=== PATIENT | male | born 1960 | race American Indian/Alaskan Native ===

== ENCOUNTER 2017-08-29 10:52 | Emergency (ER) | payer OTHER ==
--- NOTE | 2017-08-29 11:04 | Emergency Department Report ---
Stated Complaint: SOB/CP/HYPERTENSION/BACK PAIN Time Seen by Provider: 08/29/17 11:01 - HPI History of Present Illness: PT states he has a hx of CHF. PT states he has not taken any of his medication in 1 week. - ROS Review of Systems: - edema + orthopnea - headaches + nausea - Exam Physical Exam: PT's bp 180/124 no focal weakness noted gcs 15 RLL rhonchi MSE screening note: Focused history and physical exam performed. Due to findings the following was ordered: ekg, xr, labs ED Disposition for MSE Condition: Stable
[2017-08-29] MEDS ORDERED: CATAPRES PO ONE (11:05)
[2017-08-29] MEDS ORDERED: COREG PO ONE (11:05)
[2017-08-29 11:59] LABS: Eosinophils % (Auto) 5.5 % (0.0-4.3); Hematocrit 38.1 % (35.5-45.6); Hemoglobin 12.4 gm/dl (11.8-15.2); Mean Corpuscular HGB Conc 33 % (32-34); Mean Corpuscular Hemoglobin 29 pg (28-32); Mean Corpuscular Volume 88 fl (84-94); Platelet Count 238 K/mm3 (140-440); Red Blood Count 4.36 M/mm3 (3.65-5.03); Red Cell Distribution Width 17.2 % (13.2-15.2); White Blood Count 8.4 K/mm3 (4.5-11.0)
[2017-08-29 12:10] LABS: Albumin/Globulin Ratio 1.4 %; Bilirubin,Total 0.2 mg/dL (0.1-1.2); Calcium 9.5 mg/dL (8.4-10.2); Chloride 107.9 mmol/L (98-107); Potassium 4.4 mmol/L (3.6-5.0); Total Protein 6.8 g/dL (6.3-8.2)
--- NOTE | 2017-08-29 12:11 | XRay Report ---
ROUTINE CHEST, TWO VIEWS: SOB. PA and lateral views demonstrate the heart and mediastinal contour to be of normal size and shape. The lungs are clear and fully expanded and the soft tissues and bony structures are normal. IMPRESSION: Normal study.
[2017-08-29 12:12] LABS: INR 0.95 (0.87-1.13)
[2017-08-29 12:13] LABS: Partial Thromboplastin Time 30.2 Sec. (24.2-36.6)
[2017-08-29] MEDS ORDERED: BABY ASPIRIN PO ONE (13:01)
[2017-08-29] MEDS ORDERED: NORCO 5/325 PO ONE (13:40)
[2017-08-29] MEDS ORDERED: LASIX IV ONE (13:58)
--- NOTE | 2017-08-29 14:03 | Emergency Department Report ---
ED Shortness of Breath HPI - General Chief Complaint: Dyspnea/Respdistress Stated Complaint: SOB/CP/HYPERTENSION/BACK PAIN Time Seen by Provider: 08/29/17 11:01 Source: patient Mode of arrival: Ambulatory Limitations: No Limitations - History of Present Illness Initial Comments: 57-year-old male with a history of hypertension and CHF with complaint of worsening shortness of breath. Patient states she's been without his meds for the last week. She's had some increasing orthopnea and dyspnea on exertion. He denies any chest pain. He otherwise appears well. Denies any weight gain or edema in his legs. MD Complaint: shortness of breath -: days(s) Improves With: nothing Worsens With: nothing Treatments Prior to Arrival: none - Related Data Previous Rx's Medication Instructions Recorded Last Taken Type Coreg 25 mg PO BID #60 08/29/17 Unknown Rx Furosemide [Lasix TAB] 1 tab PO DAILY #30 tablet 08/29/17 Unknown Rx ISOSORBIDE MONOnitrate [Imdur ER] 30 mg PO DAILY #30 tablet 08/29/17 Unknown Rx amLODIPine [Norvasc] 1 tab PO DAILY #30 tablet 08/29/17 Unknown Rx cloNIDine [Catapres] 0.2 mg PO BID #60 tablet 08/29/17 Unknown Rx hydrALAZINE [Apresoline TAB] 1 tab PO QID #120 tablet 08/29/17 Unknown Rx Allergies Allergy/AdvReac Type Severity Reaction Status Date / Time No Known Allergies Allergy Unverified 08/29/17 11:03 ED Review of Systems ROS: Stated complaint: SOB/CP/HYPERTENSION/BACK PAIN Other details as noted in HPI Comment: All other systems reviewed and negative Constitutional: denies: chills, fever Eyes: denies: eye pain, eye discharge, vision change ENT: denies: ear pain, throat pain Respiratory: orthopnea, SOB with exertion. denies: cough, shortness of breath, wheezing Cardiovascular: denies: chest pain, palpitations Endocrine: no symptoms reported Gastrointestinal: denies: abdominal pain, nausea, diarrhea Genitourinary: denies: urgency, dysuria Musculoskeletal: denies: back pain, joint swelling, arthralgia Skin: denies: rash, lesions Neurological: denies: headache, weakness, paresthesias Psychiatric: denies: anxiety, depression Hematological/Lymphatic: denies: easy bleeding, easy bruising ED Past Medical Hx - Past Medical History Previous Medical History?: Yes Hx Hypertension: Yes Hx Congestive Heart Failure: Yes Hx Renal Disease: Yes (No dialysis) - Surgical History Past Surgical History?: Yes Additional Surgical History: Triple A repair in 2007 - Social History Smoking Status: Current Every Day Smoker Substance Use Type: Prescribed - Medications Home Medications: Home Medications Medication Instructions Recorded Confirmed Last Taken Type Coreg 25 mg PO BID #60 08/29/17 Unknown Rx Furosemide [Lasix TAB] 1 tab PO DAILY #30 tablet 08/29/17 Unknown Rx ISOSORBIDE MONOnitrate [Imdur ER] 30 mg PO DAILY #30 tablet 08/29/17 Unknown Rx amLODIPine [Norvasc] 1 tab PO DAILY #30 tablet 08/29/17 Unknown Rx cloNIDine [Catapres] 0.2 mg PO BID #60 tablet 08/29/17 Unknown Rx hydrALAZINE [Apresoline TAB] 1 tab PO QID #120 tablet 08/29/17 Unknown Rx ED Physical Exam - General Limitations: No Limitations General appearance: alert, in no apparent distress - Head Head exam: Present: atraumatic, normocephalic - Eye Eye exam: Present: normal appearance. Absent: scleral icterus, conjunctival injection - ENT ENT exam: Present: mucous membranes moist - Neck Neck exam: Present: normal inspection - Respiratory Respiratory exam: Present: normal lung sounds bilaterally. Absent: respiratory distress, wheezes - Cardiovascular Cardiovascular Exam: Present: regular rate, normal rhythm, normal heart sounds. Absent: systolic murmur, diastolic murmur, rubs, gallop - GI/Abdominal GI/Abdominal exam: Present: soft, normal bowel sounds. Absent: distended, tenderness - Rectal Rectal exam: Present: deferred - Extremities Exam Extremities exam: Present: normal inspection - Back Exam Back exam: Present: normal inspection - Neurological Exam Neurological exam: Present: alert, oriented X3 - Psychiatric Psychiatric exam: Present: normal affect, normal mood - Skin Skin exam: Present: warm, dry, intact, normal color. Absent: rash ED Course Vital Signs 08/29/17 11:06 Temperature 98.6 F Pulse Rate 98 H Respiratory 20 Rate Blood Pressure 180/124 O2 Sat by Pulse 99 Oximetry ED Medical Decision Making - Lab Data Result diagrams: 08/29/17 11:17 08/29/17 11:17 Laboratory Results - last 24 hr 08/29/17 08/29/17 08/29/17 11:17 11:17 11:17 WBC 8.4 RBC 4.36 Hgb 12.4 Hct 38.1 MCV 88 MCH 29 MCHC 33 RDW 17.2 H Plt Count 238 Lymph % (Auto) 27.5 [place] % (Auto) 12.2 H Eos % (Auto) 5.5 H Baso % (Auto) 1.0 Lymph # 2.3 [place] # 1.0 H Eos # 0.5 H Baso # 0.1 Seg Neutrophils % 53.8 Seg Neutrophils # 4.5 PT 13.2 INR 0.95 APTT 30.2 Sodium 143 Potassium 4.4 Chloride 107.9 H Carbon Dioxide 18 L Anion Gap 22 BUN 51 H Creatinine 3.4 H Estimated GFR 23 BUN/Creatinine Ratio 15 Glucose 71 L Calcium 9.5 Total Bilirubin 0.20 AST 14 ALT 10 Alkaline Phosphatase 64 Troponin T 0.064 H NT-Pro-B Natriuret Pep Total Protein 6.8 Albumin 4.0 Albumin/Globulin Ratio 1.4 Triglycerides 59 Cholesterol 236 H LDL Cholesterol Direct 156 H HDL Cholesterol 69 H Cholesterol/HDL Ratio 3.42 08/29/17 08/29/17 11:17 13:29 WBC RBC Hgb Hct MCV MCH MCHC RDW Plt Count Lymph % (Auto) [place] % (Auto) Eos % (Auto) Baso % (Auto) Lymph # [place] # Eos # Baso # Seg Neutrophils % Seg Neutrophils # PT INR APTT Sodium Potassium Chloride Carbon Dioxide Anion Gap BUN Creatinine Estimated GFR BUN/Creatinine Ratio Glucose Calcium Total Bilirubin AST ALT Alkaline Phosphatase Troponin T 0.064 H NT-Pro-B Natriuret Pep 6536 H Total Protein Albumin Albumin/Globulin Ratio Triglycerides Cholesterol LDL Cholesterol Direct HDL Cholesterol Cholesterol/HDL Ratio - Medical Decision Making 57-year-old male here with complaint of shortness of breath with exertion. Patient denies chest pain. Patient has had worsening symptoms the last few days. He denies fevers chills nausea vomiting. He has a elevated BNP. His creatinine is 3.4 which she says is near his baseline. I do not have labs. I discussed the need for the patient reinitiate his medications are given prescriptions for all of his old medications. He is comfortable self diuresing home. He will take an additional dose of Lasix were to have the next couple days and then go back to his prior regimen. He will follow-up with his primary care or backrest assembler as an outpatient. Portions of this chart were dictated with dictation software. There may be dictation errors contained within this note. Critical care attestation.: If time is entered above; I have spent that time in minutes in the direct care of this critically ill patient, excluding procedure time. ED Disposition Clinical Impression: CHF (congestive heart failure) Disposition: TO HOME OR SELFCARE Is pt being admited?: No Condition: Stable Instructions: Heart Failure (ED) Additional Instructions: Please follow-up with your regular backrest assembler. You need to be monitored closely. Prescriptions: amLODIPine [Norvasc] 1 tab PO DAILY #30 tablet cloNIDine [Catapres] 0.2 mg PO BID #60 tablet Coreg 25 mg PO BID #60 Furosemide [Lasix TAB] 1 tab PO DAILY #30 tablet hydrALAZINE [Apresoline TAB] 1 tab PO QID #120 tablet ISOSORBIDE MONOnitrate [Imdur ER] 30 mg PO DAILY #30 tablet Referrals: PRIMARY CARE, [Primary Care Provider] - 3-5 Days
[2017-08-29] MEDS ORDERED: LASIX ONE (14:43)
[2017-08-29] MEDS ORDERED: LASIX PO ONE (14:49)
[2017-08-29 15:11] VITALS: BP 180/124
== END 2017-08-29 15:00 | disposition home or self-care (01) ==
LOC: ED 10:52
DX: I50.9 Heart failure, unspecified (principal); I10 Essential (primary) hypertension; N28.9 Disorder of kidney and ureter, unspecified; F17.200 Nicotine dependence, unspecified, uncomplicated
CPT/HCPCS: 36415; 71020; 80053; 80061; 83880; 84484; 85025; 85610; 85730; 93005; 93010; 99284

== ENCOUNTER 2018-11-23 10:59 | Inpatient (IN) | payer OTHER ==
--- NOTE | 2018-11-23 11:40 | Emergency Department Report ---
ED Shortness of Breath HPI - General Chief Complaint: Dyspnea/Respdistress Stated Complaint: TI/DIZZY/CHILLS/BACK PAIN Time Seen by Provider: 11/23/18 11:30 Source: patient Mode of arrival: Ambulatory Limitations: No Limitations - History of Present Illness Initial Comments: 58-year-old male with history of CHF, CKD (not yet on dialysis) presents with shortness of breath and dizziness since yesterday. He states he feels leg he is fluid overloaded. He reports swelling to bilateral legs. States he is compliant with Lasix 40 mg daily. Patient reports orthopnea, dry cough with lying down. Patient denies chest pain, fever. Patient states he does not have a PCP or web operations specialist. MD Complaint: shortness of breath -: days(s) (1) Severity: moderate Consistency: constant Improves With: upright position Worsens With: lying flat Known History Of: congestive heart failure Associated Symptoms: denies other symptoms - Related Data Previous Rx's Medication Instructions Recorded Last Taken Type Coreg 25 mg PO BID #60 08/29/17 Unknown Rx Furosemide [Lasix TAB] 1 tab PO DAILY #30 tablet 08/29/17 Unknown Rx ISOSORBIDE MONOnitrate [Imdur ER] 30 mg PO DAILY #30 tablet 08/29/17 Unknown Rx amLODIPine [Norvasc] 1 tab PO DAILY #30 tablet 08/29/17 Unknown Rx cloNIDine [Catapres] 0.2 mg PO BID #60 tablet 08/29/17 Unknown Rx hydrALAZINE [Apresoline TAB] 1 tab PO QID #120 tablet 08/29/17 Unknown Rx Allergies Allergy/AdvReac Type Severity Reaction Status Date / Time No Known Allergies Allergy Unverified 08/29/17 11:03 ED Review of Systems ROS: Stated complaint: TI/DIZZY/CHILLS/BACK PAIN Other details as noted in HPI Comment: All other systems reviewed and negative Constitutional: denies: chills, fever Respiratory: orthopnea, shortness of breath, SOB with exertion Cardiovascular: denies: chest pain Musculoskeletal: other (reports edema) ED Past Medical Hx - Past Medical History Hx Hypertension: Yes Hx Congestive Heart Failure: Yes Hx Renal Disease: Yes (No dialysis) - Surgical History Additional Surgical History: Triple A repair in 2007 - Social History Smoking Status: Never Smoker Substance Use Type: None - Medications Home Medications: Home Medications Medication Instructions Recorded Confirmed Last Taken Type Coreg 25 mg PO BID #60 08/29/17 Unknown Rx Furosemide [Lasix TAB] 1 tab PO DAILY #30 tablet 08/29/17 Unknown Rx ISOSORBIDE MONOnitrate [Imdur ER] 30 mg PO DAILY #30 tablet 08/29/17 Unknown Rx amLODIPine [Norvasc] 1 tab PO DAILY #30 tablet 08/29/17 Unknown Rx cloNIDine [Catapres] 0.2 mg PO BID #60 tablet 08/29/17 Unknown Rx hydrALAZINE [Apresoline TAB] 1 tab PO QID #120 tablet 08/29/17 Unknown Rx ED Physical Exam - General Limitations: No Limitations General appearance: alert, in no apparent distress - Head Head exam: Present: atraumatic, normocephalic - Eye Eye exam: Present: normal appearance - ENT ENT exam: Present: mucous membranes dry - Neck Neck exam: Present: normal inspection - Respiratory Respiratory exam: Present: rales. Absent: respiratory distress - Cardiovascular Cardiovascular Exam: Present: regular rate, normal rhythm - GI/Abdominal GI/Abdominal exam: Present: soft. Absent: distended, tenderness - Extremities Exam Extremities exam: Present: other (2+ edema BLE) - Neurological Exam Neurological exam: Present: alert, oriented X3 - Psychiatric Psychiatric exam: Present: normal affect, normal mood - Skin Skin exam: Present: warm, dry, intact, normal color ED Course Vital Signs 11/23/18 11/23/18 11/23/18 11:08 11:35 11:46 Temperature 98.3 F Pulse Rate 83 79 Respiratory 18 14 Rate Blood Pressure 166/93 143/86 O2 Sat by Pulse 100 83 L 98 Oximetry 11/23/18 11/23/18 11/23/18 12:00 12:16 12:30 Temperature Pulse Rate 79 85 79 Respiratory 24 17 15 Rate Blood Pressure 143/86 143/86 143/86 O2 Sat by Pulse 98 98 98 Oximetry 11/23/18 11/23/18 11/23/18 12:46 13:00 13:16 Temperature Pulse Rate 85 78 80 Respiratory 20 21 26 H Rate Blood Pressure 143/86 143/86 143/86 O2 Sat by Pulse 98 99 96 Oximetry 11/23/18 13:30 Temperature Pulse Rate 82 Respiratory 16 Rate Blood Pressure 143/86 O2 Sat by Pulse 98 Oximetry ED Medical Decision Making - Lab Data Result diagrams: 11/23/18 11:45 11/23/18 11:45 - EKG Data -: EKG Interpreted by Me EKG shows normal: sinus rhythm, intervals Rate: normal - EKG Data Interpretation: LVH, other (T wave inv lateral leads; IVCD) - Radiology Data Radiology results: report reviewed, image reviewed - Medical Decision Making 58-year-old male presents to ED with shortness of breath, dizziness. Patient's lab show acute on chronic renal failure. 2 months ago creatinine was at 3.4, today's creatinine is 8.1. Patient states he's been told by investigation division sergeant in the past that he will likely have to begin dialysis. No evidence of hyperkalemia today. O2 sats normal chest x-ray shows vascular congestion. Patient had no respiratory distress. Troponin elevated, likely due to renal dysfunction as patient denied having any chest pain and EKG unchanged from previous. Lasix not given here in the ED given the patient's current creatinine and current respiratory status. Will admit to hospitalist. - Differential Diagnosis CHF, ACS, pneumonia Critical care attestation.: If time is entered above; I have spent that time in minutes in the direct care of this critically ill patient, excluding procedure time. ED Disposition Clinical Impression: Acute on chronic renal failure, Pulmonary edema CHF (congestive heart failure) Qualifiers: Heart failure chronicity: acute Disposition: DC-09 OP ADMIT IP TO THIS HOSP Is pt being admited?: Yes Condition: Stable Time of Disposition: 13:11
[2018-11-23 12:01] LABS: Basophils # (Auto) 0.1 K/mm3 (0.0-0.1); Basophils % (Auto) 1.3 % (0.0-1.8); Eosinophils # (Auto) 0.3 K/mm3 (0.0-0.4); Eosinophils % (Auto) 5.2 % (0.0-4.3); Hematocrit 28.4 % (35.5-45.6); Hemoglobin 9.1 gm/dl (11.8-15.2); Lymphocytes # (Auto) 0.5 K/mm3 (1.2-5.4); Lymphocytes % (Auto) 8.7 % (13.4-35.0); Mean Corpuscular HGB Conc 32 % (32-34); Mean Corpuscular Hemoglobin 28 pg (28-32); Mean Corpuscular Volume 85 fl (84-94); Monocytes # (Auto) 0.8 K/mm3 (0.0-0.8); Monocytes % (Auto) 13.7 % (0.0-7.3); Platelet Count 167 K/mm3 (140-440); Red Blood Count 3.32 M/mm3 (3.65-5.03); Red Cell Distribution Width 18.9 % (13.2-15.2)
[2018-11-23 12:12] LABS: INR 1.04 (0.87-1.13)
[2018-11-23 12:13] LABS: Partial Thromboplastin Time 25.8 Sec. (24.2-36.6)
[2018-11-23 12:16] LABS: Calcium 9.8 mg/dL (8.4-10.2)
[2018-11-23] MEDS ORDERED: ULTRAM PO ONE (12:33)
[2018-11-23 13:00] LABS: Chol/HDL Ratio 3.04 %
[2018-11-23] MEDS ORDERED: SODIUM CHLORIDE FLUSH SYRINGE 10 ML IV PRN (13:16)
[2018-11-23] MEDS ORDERED: PROVENTIL IH PRN (13:16)
[2018-11-23] MEDS ORDERED: TYLENOL PO PRN (13:16)
[2018-11-23] MEDS ORDERED: ZOFRAN IV PRN (13:16)
--- NOTE | 2018-11-23 13:22 | History and Physical Report ---
History of Present Illness Chief complaint: I cant breathe, and i just dont feel good History of present illness: 58 YO Female with CHF, ESRD awaiting hemodialysis presents to ED for evaluation. Pt states that he has experienced shortness of breath over the past 1 day with worsening symptoms over the same time frame. Pt acknowledges noncompliance with renal diet. Pt acknowledges Orthopnea/PND, decreased exercise tolerance. Pt transported to [facility] for further care and evaluation. Pt seen and evaluated in ED and found to have ESRD as well as CHF Decompensation. Pt denies fever, chills, CP, Palpitations, NVD, Trauma, BRBPR, Skin rash, productive cough, unilateral leg swelling, prolonged travel/immobility, individual/family history of DVT/PE/Blood clotting disorder, or recent ill contacts. Nephrology consulted in ED, Vascular consulted in ED. Past History Past Medical History: ESRD, heart failure Past Surgical History: abd. aortic aneurysm repair Social history: Family history: no significant family history (reviewed) Medications and Allergies Allergies Allergy/AdvReac Type Severity Reaction Status Date / Time No Known Allergies Allergy Unverified 08/29/17 11:03 Home Medications Medication Instructions Recorded Confirmed Last Taken Type Coreg 25 mg PO BID #60 08/29/17 Unknown Rx Furosemide [Lasix TAB] 1 tab PO DAILY #30 tablet 08/29/17 Unknown Rx ISOSORBIDE MONOnitrate [Imdur ER] 30 mg PO DAILY #30 tablet 08/29/17 Unknown Rx amLODIPine [Norvasc] 1 tab PO DAILY #30 tablet 08/29/17 Unknown Rx cloNIDine [Catapres] 0.2 mg PO BID #60 tablet 08/29/17 Unknown Rx hydrALAZINE [Apresoline TAB] 1 tab PO QID #120 tablet 08/29/17 Unknown Rx Review of Systems Constitutional: weight gain, no weight loss, no fever, no chills, no sweats Ears, nose, mouth and throat: no ear pain, no ear discharge, no tinnitis, no d ecreased hearing, no nose pain Cardiovascular: orthopnea, edema, shortness of breath, dyspnea on exertion, paroxysmal nocturnal dyspnea, decreased exercise tolerance, no chest pain, no palpitations, no rapid/irregular heart beat Respiratory: no cough, no cough with sputum, no excessive sputum, no hemoptysis Gastrointestinal: no nausea, no vomiting, no diarrhea, no constipation, no change in bowel habits Genitourinary Male: no dysuria, no hematuria, no flank pain, no discharge Musculoskeletal: no neck pain, no shooting arm pain, no arm numbness/tingling, no low back pain, no shooting leg pain Integumentary: no rash, no pruritis, no redness, no sores, no wounds Neurological: no transient paralysis, no paralysis, no weakness, no parathesias, no numbness, no tingling, no seizures Psychiatric: no anxiety, no memory loss, no change in sleep habits, no sleep disturbances, no insomnia, no hypersomnia Endocrine: no cold intolerance, no heat intolerance, no polyphagia, no excessive thirst, no polydipsia Hematologic/Lymphatic: no easy bruising, no easy bleeding, no lymphadenopathy, no lymphedema Allergic/Immunologic: no urticaria, no allergic rhinitis, no wheezing, no persistent infections, no anaphylaxis, no angioedema Exam - Constitutional Vitals: Temp Pulse Resp BP Pulse Ox 98.3 F 83 18 166/93 100 11/23/18 11:08 11/23/18 11:08 11/23/18 11:08 11/23/18 11:08 11/23/18 11:08 General appearance: Present: mild distress - EENT Eyes: Present: PERRL ENT: hearing intact, clear oral mucosa - Neck Neck: Present: supple, normal ROM - Respiratory Respiratory effort: normal Respiratory: bilateral: diminished, rhonchi - Cardiovascular Heart Sounds: Present: S1 & S2. Absent: rub, click - Extremities Extremities: pulses symmetrical, No edema Extremity abnormal: edema Peripheral Pulses: within normal limits - Abdominal General gastrointestinal: Present: soft, non-tender, non-distended, normal bowel sounds Male genitourinary: Present: normal - Integumentary Integumentary: Present: clear, warm, dry - Musculoskeletal Musculoskeletal: gait normal, strength equal bilaterally - Psychiatric Psychiatric: appropriate mood/affect, intact judgment & insight - Neurologic Neurologic: CNII-XII intact, moves all extremities Results - Labs CBC & Chem 7: 11/23/18 11:45 11/23/18 11:45 Labs: Abnormal lab results 11/23/18 11/23/18 11/23/18 Range/Units 11:45 11:45 11:45 RBC 3.32 L (3.65-5.03) M/mm3 Hgb 9.1 L (11.8-15.2) gm/dl Hct 28.4 L (35.5-45.6) % RDW 18.9 H (13.2-15.2) % Lymph % (Auto) 8.7 L (13.4-35.0) % [place] % (Auto) 13.7 H (0.0-7.3) % Eos % (Auto) 5.2 H (0.0-4.3) % Lymph # 0.5 L (1.2-5.4) K/mm3 Seg Neutrophils % 71.1 H (40.0-70.0) % Chloride 109.0 H (98-107) mmol/L Carbon Dioxide 16 L (22-30) mmol/L BUN 75 H (9-20) mg/dL Creatinine 8.1 H (0.8-1.5) mg/dL Glucose 105 H (75-100) mg/dL Troponin T (0.00-0.029) ng/mL NT-Pro-B Natriuret Pep 8651 H (0-900) pg/mL 11/23/18 Range/Units 11:45 RBC (3.65-5.03) M/mm3 Hgb (11.8-15.2) gm/dl Hct (35.5-45.6) % RDW (13.2-15.2) % Lymph % (Auto) (13.4-35.0) % [place] % (Auto) (0.0-7.3) % Eos % (Auto) (0.0-4.3) % Lymph # (1.2-5.4) K/mm3 Seg Neutrophils % (40.0-70.0) % Chloride (98-107) mmol/L Carbon Dioxide (22-30) mmol/L BUN (9-20) mg/dL Creatinine (0.8-1.5) mg/dL Glucose (75-100) mg/dL Troponin T 0.122 H* (0.00-0.029) ng/mL NT-Pro-B Natriuret Pep (0-900) pg/mL Assessment and Plan - Patient Problems (1) ESRD (end stage renal disease) Current Visit: Yes Status: Acute Plan to address problem: Nephrology consulted in ED for urgent dialysis, Vascular consulted for Permacath placement (2) CHF (congestive heart failure) Current Visit: Yes Status: Acute Qualifiers: Heart failure chronicity: acute Plan to address problem: Admit to Telemetry, cardiology consulted, strict I/O, Daily weight, bnp, diuresis, afterload reduction (3) Acidosis Current Visit: Yes Status: Acute Plan to address problem: urgent dialysis, IV bicarbonate, (4) DVT prophylaxis Current Visit: Yes Status: Acute Plan to address problem: SCD to BLE while in bed.
--- NOTE | 2018-11-23 13:38 | XRay Report ---
AP CHEST: HISTORY: Shortness of breath Mild cardiomegaly and pulmonary venous congestion appear relatively stable since 08/29/17. Hazy opacity has developed in the superior lingula which could represent an early infiltrate. The right lung is clear. No pleural effusion or pneumothorax is identified. IMPRESSION: Mild cardiomegaly and central pulmonary venous congestion. Probable early lingular infiltrate.
[2018-11-23] MEDS ORDERED: SODIUM BICARBONATE IV ONE (14:08)
[2018-11-23] MEDS ORDERED: SODIUM BICARBONATE Syringe IV ONE ×2 (14:30→15:44)
[2018-11-23] MEDS ORDERED: APRESOLINE ONE (15:41)
--- NOTE | 2018-11-23 15:49 | Consultation ---
History of Present Illness - Reason for Consult Consult date: 11/23/18 chronic renal failure, other (uremia) - History of Present Illness The patient is a 58 YO male with history significant for HTN, HLD, CHF and CKD stage 5 who presented to [facility] ED with c/o sob since yesterday. The onset was fairly acute with worsening symptoms. Pt also reports orthopnea, PND, dry cough, leg swelling and feeling tired. Patient denies any N, V, D, hemoptysis, wheezing, fever, chills, rash, dizziness, syncope, dysuria, hematuria or abd pain. Patient was diagnosed with CHF Decompensation, volume overload and CKD progressed to ESRD. Nephrology and Vascular consulted in ED for further evaluation. Past History Past Medical History: heart failure, hypertension, hyperlipidemia, renal failure Past Surgical History: abd. aortic aneurysm repair Social history: Family history: no significant family history (reviewed) Medications and Allergies Allergies Allergy/AdvReac Type Severity Reaction Status Date / Time No Known Allergies Allergy Unverified 08/29/17 11:03 Home Medications Medication Instructions Recorded Confirmed Last Taken Type Coreg 25 mg PO BID #60 08/29/17 Unknown Rx Furosemide [Lasix TAB] 1 tab PO DAILY #30 tablet 08/29/17 Unknown Rx ISOSORBIDE MONOnitrate [Imdur ER] 30 mg PO DAILY #30 tablet 08/29/17 Unknown Rx amLODIPine [Norvasc] 1 tab PO DAILY #30 tablet 08/29/17 Unknown Rx cloNIDine [Catapres] 0.2 mg PO BID #60 tablet 08/29/17 Unknown Rx hydrALAZINE [Apresoline TAB] 1 tab PO QID #120 tablet 08/29/17 Unknown Rx Active Meds: Active Medications Acetaminophen (Tylenol) 650 mg PO Q4H PRN PRN Reason: Pain MILD(1-3)/Fever >100.5/HUBER Albuterol (Proventil) 2.5 mg IH Q4HRT PRN PRN Reason: Shortness Of Breath Amlodipine Besylate (Norvasc) 5 mg PO DAILY [facility] Clonidine HCl (Catapres) 0.2 mg PO BID EDDY Furosemide (Lasix) 80 mg PO DAILY EDDY Furosemide (Lasix) 40 mg IV BID@0600,1800 EDDY Hydralazine HCl (Apresoline) 25 mg PO QID EDDY Isosorbide Mononitrate (Imdur) 30 mg PO DAILY [facility] Ondansetron HCl (Zofran) 4 mg IV Q8H PRN PRN Reason: Nausea And Vomiting Sodium Chloride (Sodium Chloride Flush Syringe 10 Ml) 10 ml IV BID EDDY Sodium Chloride (Sodium Chloride Flush Syringe 10 Ml) 10 ml IV PRN PRN PRN Reason: LINE FLUSH Review of Systems Constitutional: fatigue, no weight loss, no weight gain, no fever, no chills, no anorexia Cardiovascular: orthopnea, edema, shortness of breath, dyspnea on exertion, paroxysmal nocturnal dyspnea, high blood pressure, leg edema, decreased exercise tolerance, no chest pain, no palpitations, no syncope, no lightheadedness Respiratory: cough, shortness of breath, dyspnea on exertion, no cough with sputum, no excessive sputum, no hemoptysis, no sleep apnea, no home oxygen Gastrointestinal: no abdominal pain, no nausea, no vomiting, no diarrhea, no hematemesis, no melena, no jaundice Genitourinary Male: no dysuria, no hematuria Rectal: no bleeding Musculoskeletal: no muscle weakness, no muscle cramps Integumentary: no rash, no wounds, no jaundice Neurological: no weakness, no parathesias, no numbness, no tingling, no seizures, no syncope, no headaches, no convulsions, no change in speech, no change in mentation, no confusion, no memory loss, no double vision, no loss of vision Psychiatric: no memory loss, no hypersomnia, no confusion Endocrine: no polyuria Exam - Vital Signs Vital signs: Vital Signs Temp Pulse Resp BP Pulse Ox 98.3 F 83 18 166/93 100 11/23/18 11:08 11/23/18 11:08 11/23/18 11:08 11/23/18 11:08 11/23/18 11:08 - General Appearance General appearance: well-developed, appears stated age, other (patient appears ill, not in distress) EENT: ATNC, PERRL, mucous membranes dry, hearing intact, vision intact Neck: Present: neck supple, trachea midline Respiratory: Rales Heart: regular, S1S2, no murmurs Gastrointestinal: Present: normoactive bowel sounds. Absent: tenderness, distended Integumentary: no rash, warm and dry Neurologic: no focal deficit, no asterixis, alert and oriented x3 Musculoskeletal: Present: other (no edema) Results - Lab Results 11/23/18 11:45 11/23/18 11:45 Most recent lab results Calcium 9.8 mg/dL (8.4-10.2) 11/23/18 11:45 Assessment and Plan 1. ESRD: Patient presented with volume overload and uremic symptoms. CKD stage 5 has progressed to ESRD. Explained patient that he need hemodialysis to treat his condition and also informed the dangers of not doing hemodialysis. Patient followed by [facility] at [place] and he is aware of dialysis. He refused dialysis inspite of multiple physicians talking to him. Understood the risks involved. 2. FEN: Lasix for volume overload. Metabolic acidosis, PO sodium bicarbonate. Monitor. 3. CHF exacerbation: Continue Lasix for volume overload. 4. Hypertension: BP is fair. 5. Anemia: Secondary to CKD. 6. Medical non-compliance.
[2018-11-23] MEDS: APRESOLINE PO SCH ×3 (15:50→21:08)
--- NOTE | 2018-11-23 15:54 | Consultation ---
History of Present Illness - Reason for Consult Consult date: 11/23/18 Permcath placement - History of Present Illness The patient is a 58 year old male with history significant for HTN, HLD, CHF and CKD stage 5 who presented to [facility] ED with complaints of sob since yesterday. The onset was fairly acute with worsening symptoms. The patient reports orthopnea, PND, dry cough, leg swelling and feeling tired. The patient denies any N, V, D, hemoptysis, wheezing, fever, chills, rash, dizziness, syncope, dysuria, hematuria or abd pain. Patient was diagnosed with CHF Decompensation, volume overload and CKD progressed to ESRD. Nephrology and Vascular consulted in ED for further evaluation. I discussed the situation with the patient and discussed hemodialysis access with the patient. Past History Past Medical History: ESRD, heart failure Past Surgical History: abd. aortic aneurysm repair Social history: Family history: no significant family history (reviewed) Medications and Allergies Allergies Allergy/AdvReac Type Severity Reaction Status Date / Time No Known Allergies Allergy Unverified 08/29/17 11:03 Home Medications Medication Instructions Recorded Confirmed Last Taken Type Coreg 25 mg PO BID #60 08/29/17 Unknown Rx Furosemide [Lasix TAB] 1 tab PO DAILY #30 tablet 08/29/17 Unknown Rx ISOSORBIDE MONOnitrate [Imdur ER] 30 mg PO DAILY #30 tablet 08/29/17 Unknown Rx amLODIPine [Norvasc] 1 tab PO DAILY #30 tablet 08/29/17 Unknown Rx cloNIDine [Catapres] 0.2 mg PO BID #60 tablet 08/29/17 Unknown Rx hydrALAZINE [Apresoline TAB] 1 tab PO QID #120 tablet 08/29/17 Unknown Rx Active Meds: Active Medications Acetaminophen (Tylenol) 650 mg PO Q4H PRN PRN Reason: Pain MILD(1-3)/Fever >100.5/HUBER Albuterol (Proventil) 2.5 mg IH Q4HRT PRN PRN Reason: Shortness Of Breath Amlodipine Besylate (Norvasc) 5 mg PO DAILY [facility] Clonidine HCl (Catapres) 0.2 mg PO BID EDDY Furosemide (Lasix) 80 mg PO DAILY EDDY Furosemide (Lasix) 40 mg IV BID@0600,1800 EDDY Hydralazine HCl (Apresoline) 25 mg PO QID EDDY Isosorbide Mononitrate (Imdur) 30 mg PO DAILY [facility] Ondansetron HCl (Zofran) 4 mg IV Q8H PRN PRN Reason: Nausea And Vomiting Sodium Chloride (Sodium Chloride Flush Syringe 10 Ml) 10 ml IV BID [facility] Sodium Chloride (Sodium Chloride Flush Syringe 10 Ml) 10 ml IV PRN PRN PRN Reason: LINE FLUSH Review of Systems All systems: negative (see HPI) Exam - Constitutional Vitals: Temp Pulse Resp BP Pulse Ox 98.3 F 85 13 144/84 99 11/23/18 11:08 11/23/18 14:16 11/23/18 14:16 11/23/18 14:00 11/23/18 14:16 General appearance: Present: mild distress (SOB) - EENT Eyes: Present: EOM intact ENT: hearing intact - Respiratory Respiratory effort: labored - Psychiatric Psychiatric: appropriate mood/affect, cooperative Results - Labs CBC & Chem 7: 11/23/18 11:45 11/23/18 11:45 Labs: Abnormal lab results 11/23/18 11/23/18 11/23/18 Range/Units 11:45 11:45 11:45 RBC 3.32 L (3.65-5.03) M/mm3 Hgb 9.1 L (11.8-15.2) gm/dl Hct 28.4 L (35.5-45.6) % RDW 18.9 H (13.2-15.2) % Lymph % (Auto) 8.7 L (13.4-35.0) % [place] % (Auto) 13.7 H (0.0-7.3) % Eos % (Auto) 5.2 H (0.0-4.3) % Lymph # 0.5 L (1.2-5.4) K/mm3 Seg Neutrophils % 71.1 H (40.0-70.0) % Chloride 109.0 H (98-107) mmol/L Carbon Dioxide 16 L (22-30) mmol/L BUN 75 H (9-20) mg/dL Creatinine 8.1 H (0.8-1.5) mg/dL Glucose 105 H (75-100) mg/dL Troponin T (0.00-0.029) ng/mL NT-Pro-B Natriuret Pep 8651 H (0-900) pg/mL 11/23/18 Range/Units 11:45 RBC (3.65-5.03) M/mm3 Hgb (11.8-15.2) gm/dl Hct (35.5-45.6) % RDW (13.2-15.2) % Lymph % (Auto) (13.4-35.0) % [place] % (Auto) (0.0-7.3) % Eos % (Auto) (0.0-4.3) % Lymph # (1.2-5.4) K/mm3 Seg Neutrophils % (40.0-70.0) % Chloride (98-107) mmol/L Carbon Dioxide (22-30) mmol/L BUN (9-20) mg/dL Creatinine (0.8-1.5) mg/dL Glucose (75-100) mg/dL Troponin T 0.122 H* (0.00-0.029) ng/mL NT-Pro-B Natriuret Pep (0-900) pg/mL Assessment and Plan 58-year-old male with presentation with congestive heart failure exacerbation and end-stage renal disease with uremic symptoms and volume load. I had a long discussion with the patient about dialysis catheter placement for dialysis. The patient would qualify for urgent dialysis. Unfortunately, despite a long discussion with myself, the hospitalist Dr. Sprague, and the development manager Dr. Ruiz, the patient has declined dialysis at this time. He understands that there is no good alternatives and declining dialysis may result in . He understands. Please contact us if patient changes his mind, but at this time, he has declined dialysis and understands that the risk of the declining dialysis is .
[2018-11-23] MEDS ORDERED: LASIX ONE (16:57)
[2018-11-23] MEDS: LASIX IV SCH ×2 (17:06→21:09)
[2018-11-23] MEDS: CATAPRES PO SCH (21:08)
[2018-11-23] MEDS: SODIUM BICARBONATE PO SCH (21:08)
[2018-11-23] MEDS: SODIUM CHLORIDE FLUSH SYRINGE 10 ML IV SCH (21:09)
[2018-11-24 00:33] LABS: Bilirubin,Urine NEG (Negative); Blood,Urine SM (Negative); Color,Urine Straw (Yellow); RBC,Urine < 1.0 /HPF (0.0-6.0); Urobilinogen,Urine < 2.0 mg/dL (<2.0)
[2018-11-24 00:48] LABS: Mucus,Urine Few /HPF; WBC,Urine < 1.0 /HPF (0.0-6.0)
[2018-11-24] MEDS: ULTRAM PO PRN ×2 (00:57→18:18)
[2018-11-24 01:06] LABS: Creatinine,Urine 46.3 mg/dL (0.1-20.0); Protein/Creatinine Ratio,Urine 0.91
[2018-11-24] MEDS: LASIX IV SCH ×2 (05:15→18:11)
[2018-11-24 07:30] LABS: Albumin 3.7 g/dL (3.9-5); Calcium 9.5 mg/dL (8.4-10.2)
[2018-11-24] MEDS ORDERED: FUROSEMIDE PO SCH (10:00)
--- NOTE | 2018-11-24 10:17 | Progress Note ---
Assessment and Plan 1. ESRD: Patient presented with volume overload and uremic symptoms. CKD stage 5 has progressed to ESRD. Patient continue to refuse any kind of dialysis. He is aware of the consequences. 2. FEN: Lasix for volume overload. Metabolic acidosis, PO sodium bicarbonate. Monitor. 3. CHF exacerbation: Continue Lasix for volume overload. 4. Hypertension: BP is fair. 5. Anemia: Secondary to CKD. 6. Medical non-compliance. Subjective Date of service: 11/24/18 Interval history: Patient was seen and examined at the bedside. Doing ok. Objective - Vital Signs Vital signs: Vital Signs - 12hr 11/23/18 11/24/18 11/24/18 22:40 00:57 01:14 Temperature Pulse Rate Pulse Rate [ 81 Apical] Respiratory 18 10 L Rate Respiratory 18 Rate [Back] Blood Pressure O2 Sat by Pulse 94 Oximetry 11/24/18 11/24/18 11/24/18 01:57 04:57 09:12 Temperature 98.3 F 98.7 F Pulse Rate 74 Pulse Rate [ Apical] Respiratory 18 17 18 Rate Respiratory Rate [Back] Blood Pressure 148/98 155/102 O2 Sat by Pulse 97 Oximetry - General Appearance General appearance: well-developed, well-nourished, appears stated age, other (not in distress) EENT: ATNC, PERRL, hearing intact, vision intact Neck: supple Respiratory: Present: Clear to Ascultation Cardiology: regular, S1S2, no murmurs Gastrointestinal: normoactive bowel sounds, no tenderness, no distended Integumentary: no rash, warm and dry Neurologic: no focal deficit, no asterixis, alert and oriented x3 Musculoskeletal: other (no edema) - Lab 11/23/18 11:45 11/24/18 05:45 Most recent lab results Calcium 9.5 mg/dL (8.4-10.2) 11/24/18 05:45 Phosphorus 4.20 mg/dL (2.5-4.5) 11/24/18 05:45 Magnesium 2.10 mg/dL (1.7-2.3) 11/24/18 05:45 Urine Creatinine 46.3 mg/dL (0.1-20.0) H 11/24/18 00:13 Urine Sodium 122 mmol/L 11/24/18 00:13 Urine Total Protein 42 mg/dL (5-11.8) H 11/24/18 00:13 Medications & Allergies - Medications Allergies/Adverse Reactions: Allergies No Known Allergies Allergy (Unverified 08/29/17 11:03) Home Medications: Home Medications Medication Instructions Recorded Confirmed Last Taken Type Coreg 25 mg PO BID #60 08/29/17 Unknown Rx Furosemide [Lasix TAB] 1 tab PO DAILY #30 tablet 08/29/17 Unknown Rx ISOSORBIDE MONOnitrate [Imdur ER] 30 mg PO DAILY #30 tablet 08/29/17 Unknown Rx amLODIPine [Norvasc] 1 tab PO DAILY #30 tablet 08/29/17 Unknown Rx cloNIDine [Catapres] 0.2 mg PO BID #60 tablet 08/29/17 Unknown Rx hydrALAZINE [Apresoline TAB] 1 tab PO QID #120 tablet 08/29/17 Unknown Rx Active Medications: Generic Name Dose Route Start Last Admin Trade Name Freq PRN Reason Stop Dose Admin Acetaminophen 650 mg 11/23/18 13:16 11/23/18 21:06 Tylenol PO 650 mg Q4H PRN Administration Pain MILD(1-3)/Fever >100.5/HUBER Albuterol 2.5 mg 11/23/18 13:16 Proventil IH Q4HRT PRN Shortness Of Breath Amlodipine Besylate 5 mg 11/24/18 10:00 Norvasc PO DAILY EDDY Clonidine HCl 0.2 mg 11/23/18 22:00 11/23/18 21:08 Catapres PO 0.2 mg BID EDDY Administration Furosemide 80 mg 11/24/18 10:00 Lasix PO DAILY EDDY Furosemide 40 mg 11/23/18 18:00 11/24/18 05:15 Lasix IV 40 mg BID@0600,1800 EDDY Administration Hydralazine HCl 25 mg 11/23/18 14:00 11/23/18 21:08 Apresoline PO Not Given QID EDDY Isosorbide Mononitrate 30 mg 11/24/18 10:00 Imdur PO DAILY [facility] Ondansetron HCl 4 mg 11/23/18 13:16 Zofran IV Q8H PRN Nausea And Vomiting Sodium Bicarbonate 650 mg 11/23/18 20:00 11/23/18 21:08 Sodium Bicarbonate PO 650 mg TID EDDY Administration Sodium Chloride 10 ml 11/23/18 22:00 11/23/18 21:09 Sodium Chloride Flush Syringe 10 Ml IV 10 ml BID EDDY Administration Sodium Chloride 10 ml 11/23/18 13:16 Sodium Chloride Flush Syringe 10 Ml IV PRN PRN LINE FLUSH Tramadol HCl 50 mg 11/24/18 00:35 11/24/18 00:57 Ultram PO 50 mg Q6H PRN Administration Pain, Moderate (4-6)
[2018-11-24] MEDS: IMDUR PO SCH (10:33)
[2018-11-24] MEDS: NORVASC PO SCH (10:34)
[2018-11-24] MEDS: SODIUM BICARBONATE PO SCH ×3 (10:34→20:06)
[2018-11-24] MEDS: APRESOLINE PO SCH ×4 (10:34→21:41)
[2018-11-24] MEDS: CATAPRES PO SCH ×2 (10:34→21:40)
[2018-11-24] MEDS: LASIX PO SCH (10:38)
--- NOTE | 2018-11-24 10:49 | Progress Note ---
Assessment and Plan Assessment and plan: (1) ESRD (end stage renal disease) Current Visit: Yes Status: Acute Plan to address problem: Nephrology and vascular evaluated Patient refused hemodialysis (2) CHF (congestive heart failure) Current Visit: Yes Status: Acute Qualifiers: Heart failure chronicity: acute Plan to address problem: Admit to Telemetry, cardiology consulted, strict I/O, Daily weight, bnp, diuresis, afterload reduction EF of 10-20%, cardiology following Continue current anti-failure medications (3) Acidosis Current Visit: Yes Status: Acute Plan to address problem: urgent dialysis, IV bicarbonate, Patient refused hemodialysis (4) DVT prophylaxis Current Visit: Yes Status: Acute Plan to address problem: SCD to BLE while in bed. Heparin and renal dose (5)Medical noncompliance Noncompliance patient refused hemodialysis Patient consulted to comply with treatment plan and dialysis Plan of care reviewed with the patient, 2 daughters at the bedside Answered all the questions, patient has not made the decision to initiate HD yet History Interval history: Recent seen and examined medical records reviewed Admitted with chronic kidney disease and hyperkalemia Evaluation by nephrology and vascular Patient refused hemodialysis Patient reports that he feels better No new complaints Vital signs noted Hospitalist Physical - Constitutional Vitals: Temp Pulse Resp BP Pulse Ox 98.7 F 74 18 155/102 97 11/24/18 09:12 11/24/18 09:12 11/24/18 09:12 11/24/18 09:12 11/24/18 09:12 General appearance: Present: mild distress (SOB), well-nourished - EENT Eyes: Present: PERRL, EOM intact - Neck Neck: Present: supple, normal ROM - Respiratory Respiratory effort: normal Respiratory: bilateral: diminished, negative: rales, rhonchi, wheezing - Cardiovascular Rhythm: regular Heart Sounds: Present: S1 & S2 - Extremities Extremities: no ischemia, No edema - Abdominal General gastrointestinal: soft, non-tender, non-distended, normal bowel sounds - Integumentary Integumentary: Present: clear, warm - Psychiatric Psychiatric: appropriate mood/affect, cooperative - Neurologic Neurologic: CNII-XII intact, moves all extremities Results - Labs CBC & Chem 7: 11/23/18 11:45 11/24/18 05:45 Labs: Laboratory Last Values WBC 5.6 K/mm3 (4.5-11.0) 11/23/18 11:45 RBC 3.32 M/mm3 (3.65-5.03) L 11/23/18 11:45 Hgb 9.1 gm/dl (11.8-15.2) L 11/23/18 11:45 Hct 28.4 % (35.5-45.6) L 11/23/18 11:45 MCV 85 fl (84-94) 11/23/18 11:45 MCH 28 pg (28-32) 11/23/18 11:45 MCHC 32 % (32-34) 11/23/18 11:45 RDW 18.9 % (13.2-15.2) H 11/23/18 11:45 Plt Count 167 K/mm3 (140-440) 11/23/18 11:45 Lymph % (Auto) 8.7 % (13.4-35.0) L 11/23/18 11:45 [place] % (Auto) 13.7 % (0.0-7.3) H 11/23/18 11:45 Eos % (Auto) 5.2 % (0.0-4.3) H 11/23/18 11:45 Baso % (Auto) 1.3 % (0.0-1.8) 11/23/18 11:45 Lymph # 0.5 K/mm3 (1.2-5.4) L 11/23/18 11:45 [place] # 0.8 K/mm3 (0.0-0.8) 11/23/18 11:45 Eos # 0.3 K/mm3 (0.0-0.4) 11/23/18 11:45 Baso # 0.1 K/mm3 (0.0-0.1) 11/23/18 11:45 Seg Neutrophils % 71.1 % (40.0-70.0) H 11/23/18 11:45 Seg Neutrophils # 4.0 K/mm3 (1.8-7.7) 11/23/18 11:45 PT 14.0 Sec. (12.2-14.9) 11/23/18 11:45 INR 1.04 (0.87-1.13) 11/23/18 11:45 APTT 25.8 Sec. (24.2-36.6) 11/23/18 11:45 Sodium 142 mmol/L (137-145) 11/24/18 05:45 Potassium 4.8 mmol/L (3.6-5.0) 11/24/18 05:45 Chloride 108.5 mmol/L (98-107) H 11/24/18 05:45 Carbon Dioxide 16 mmol/L (22-30) L 11/24/18 05:45 Anion Gap 22 mmol/L 11/24/18 05:45 BUN 72 mg/dL (9-20) H 11/24/18 05:45 Creatinine 8.9 mg/dL (0.8-1.5) H 11/24/18 05:45 Estimated GFR 7 ml/min 11/24/18 05:45 BUN/Creatinine Ratio 8 % 11/24/18 05:45 Glucose 95 mg/dL (75-100) 11/24/18 05:45 Calcium 9.5 mg/dL (8.4-10.2) 11/24/18 05:45 Phosphorus 4.20 mg/dL (2.5-4.5) 11/24/18 05:45 Magnesium 2.10 mg/dL (1.7-2.3) 11/24/18 05:45 Total Bilirubin 0.30 mg/dL (0.1-1.2) 11/24/18 05:45 AST 12 units/L (5-40) 11/24/18 05:45 ALT 21 units/L (7-56) 11/24/18 05:45 Alkaline Phosphatase 62 units/L (35-129) 11/24/18 05:45 Troponin T 0.122 ng/mL (0.00-0.029) H* 11/23/18 11:45 NT-Pro-B Natriuret Pep 8651 pg/mL (0-900) H 11/23/18 11:45 Total Protein 6.4 g/dL (6.3-8.2) 11/24/18 05:45 Albumin 3.7 g/dL (3.9-5) L 11/24/18 05:45 Albumin/Globulin Ratio 1.4 % 11/24/18 05:45 Triglycerides 65 mg/dL (2-149) 11/23/18 11:45 Cholesterol 146 mg/dL (50-199) 11/23/18 11:45 LDL Cholesterol Direct 96 mg/dL (50-130) 11/23/18 11:45 HDL Cholesterol 48 mg/dL (40-59) 11/23/18 11:45 Cholesterol/HDL Ratio 3.04 % 11/23/18 11:45 Urine Color Straw (Yellow) 11/24/18 00:13 Urine Turbidity Clear (Clear) 11/24/18 00:13 Urine pH 7.0 (5.0-7.0) 11/24/18 00:13 Ur Specific [place] 1.006 (1.003-1.030) 11/24/18 00:13 Urine Protein 30 mg/dl mg/dL (Negative) 11/24/18 00:13 Urine Glucose (UA) 50 mg/dL (Negative) 11/24/18 00:13 Urine Ketones Neg mg/dL (Negative) 11/24/18 00:13 Urine Blood Sm (Negative) 11/24/18 00:13 Urine Nitrite Neg (Negative) 11/24/18 00:13 Urine Bilirubin Neg (Negative) 11/24/18 00:13 Urine Urobilinogen < 2.0 mg/dL (<2.0) 11/24/18 00:13 Ur Leukocyte Esterase Neg (Negative) 11/24/18 00:13 Urine WBC (Auto) < 1.0 /HPF (0.0-6.0) 11/24/18 00:13 Urine RBC (Auto) < 1.0 /HPF (0.0-6.0) 11/24/18 00:13 Urine Mucus Few /HPF 11/24/18 00:13 Urine Creatinine 46.3 mg/dL (0.1-20.0) H 11/24/18 00:13 Protein/Creatinin Ratio 0.91 11/24/18 00:13 Urine Sodium 122 mmol/L 11/24/18 00:13 Urine Total Protein 42 mg/dL (5-11.8) H 11/24/18 00:13
[2018-11-24] MEDS: SODIUM CHLORIDE FLUSH SYRINGE 10 ML IV SCH (10:51)
[2018-11-24] MEDS: ZYLOPRIM PO SCH (11:32)
[2018-11-24] MEDS: COREG PO SCH ×2 (11:32→21:40)
--- NOTE | 2018-11-24 12:47 | Consultation ---
History of Present Illness Consult date: 11/24/18 Consult reason: congestive heart failure History of present illness: The patient is a 58-year-old man who presented to the hospital with shortness of breath, lower extremity edema, and his chest x-ray showed changes of mild heart failure. The most significant finding on his laboratory exam was end-stage renal failure, creatinine 8.1. EKG was sinus rhythm with left ventricular hypertrophy, left bundle branch block. The patient gives a history of chronic severe kidney disease, for which he follows up with a furnace hand at [facility], and is not yet on dialysis. Additionally he gives a history of long-standing heart failure and left ventricular systolic dysfunction, but has not seen a last picker in many years. He states that he was placed on Imdur and carvedilol, which has been routinely refilled by his furnace hand, but has undergone no further cardiac workup in several years. On this presentation, an echocardiogram shows an end-stage dilated cardiomyopathy with left ventricular ejection fraction less than 15-20%. Past History Past Medical History: ESRD, heart failure Past Surgical History: abd. aortic aneurysm repair Social history: Family history: no significant family history (reviewed) Medications and Allergies Allergies Allergy/AdvReac Type Severity Reaction Status Date / Time No Known Allergies Allergy Unverified 08/29/17 11:03 Home Medications Medication Instructions Recorded Confirmed Last Taken Type Coreg 25 mg PO BID #60 08/29/17 Unknown Rx Furosemide [Lasix TAB] 1 tab PO DAILY #30 tablet 08/29/17 Unknown Rx ISOSORBIDE MONOnitrate [Imdur ER] 30 mg PO DAILY #30 tablet 08/29/17 Unknown Rx amLODIPine [Norvasc] 1 tab PO DAILY #30 tablet 08/29/17 Unknown Rx cloNIDine [Catapres] 0.2 mg PO BID #60 tablet 08/29/17 Unknown Rx hydrALAZINE [Apresoline TAB] 1 tab PO QID #120 tablet 08/29/17 Unknown Rx Active Meds: Active Medications Acetaminophen (Tylenol) 650 mg PO Q4H PRN PRN Reason: Pain MILD(1-3)/Fever >100.5/HUBER Last Admin: 11/23/18 21:06 Dose: 650 mg Documented by: Albuterol (Proventil) 2.5 mg IH Q4HRT PRN PRN Reason: Shortness Of Breath Allopurinol (Zyloprim) 100 mg PO QDAY [facility] Last Admin: 11/24/18 11:32 Dose: 100 mg Documented by: Amlodipine Besylate (Norvasc) 5 mg PO DAILY [facility] Last Admin: 11/24/18 10:34 Dose: 5 mg Documented by: Carvedilol (Coreg) 25 mg PO BID [facility] Last Admin: 11/24/18 11:32 Dose: 25 mg Documented by: Clonidine HCl (Catapres) 0.2 mg PO BID [facility] Last Admin: 11/24/18 10:34 Dose: 0.2 mg Documented by: Furosemide (Lasix) 80 mg PO DAILY [facility] Last Admin: 11/24/18 10:38 Dose: Not Given Documented by: Furosemide (Lasix) 40 mg IV BID@0600,1800 [facility] Last Admin: 11/24/18 05:15 Dose: 40 mg Documented by: Hydralazine HCl (Apresoline) 25 mg PO QID [facility] Last Admin: 11/24/18 10:34 Dose: 25 mg Documented by: Isosorbide Mononitrate (Imdur) 30 mg PO DAILY [facility] Last Admin: 11/24/18 10:33 Dose: 30 mg Documented by: Ondansetron HCl (Zofran) 4 mg IV Q8H PRN PRN Reason: Nausea And Vomiting Sodium Bicarbonate (Sodium Bicarbonate) 650 mg PO TID [facility] Last Admin: 11/24/18 10:34 Dose: 650 mg Documented by: Sodium Chloride (Sodium Chloride Flush Syringe 10 Ml) 10 ml IV BID [facility] Last Admin: 11/24/18 10:51 Dose: 10 ml Documented by: Sodium Chloride (Sodium Chloride Flush Syringe 10 Ml) 10 ml IV PRN PRN PRN Reason: LINE FLUSH Tramadol HCl (Ultram) 50 mg PO Q6H PRN PRN Reason: Pain, Moderate (4-6) Last Admin: 11/24/18 00:57 Dose: 50 mg Documented by: Review of Systems Cardiovascular: orthopnea, edema, shortness of breath, no chest pain, no palpitations, no rapid/irregular heart beat, no syncope, no lightheadedness Physical Examination Vital Signs Temp Pulse Resp BP Pulse Ox 98.3 F 83 18 166/93 100 11/23/18 11:08 11/23/18 11:08 11/23/18 11:08 11/23/18 11:08 11/23/18 11:08 General appearance: no acute distress HEENT: Positive: PERRL Neck: Positive: neck supple Cardiac: Positive: Reg Rate and Rhythm Lungs: Positive: Decreased Breath Sounds Neuro: Positive: Grossly Intact Abdomen: Positive: Soft Male genitourinary: Positive: deferred Skin: Positive: Clear Extremities: Present: +1 Edema Results 11/23/18 11:45 11/24/18 05:45 Cardiac Enzymes 11/24/18 Range/Units 05:45 AST 12 (5-40) units/L Lipids 11/23/18 Range/Units 11:45 Triglycerides 65 (2-149) mg/dL Cholesterol 146 (50-199) mg/dL HDL Cholesterol 48 (40-59) mg/dL Cholesterol/HDL Ratio 3.04 % Comprehensive Metabolic Panel 11/24/18 Range/Units 05:45 Sodium 142 (137-145) mmol/L Potassium 4.8 (3.6-5.0) mmol/L Chloride 108.5 H (98-107) mmol/L Carbon Dioxide 16 L (22-30) mmol/L BUN 72 H (9-20) mg/dL Creatinine 8.9 H (0.8-1.5) mg/dL Glucose 95 (75-100) mg/dL Calcium 9.5 (8.4-10.2) mg/dL AST 12 (5-40) units/L ALT 21 (7-56) units/L Alkaline Phosphatase 62 (35-129) units/L Total Protein 6.4 (6.3-8.2) g/dL Albumin 3.7 L (3.9-5) g/dL EKG interpretations - Telemetry EKG Rhythm: Sinus Rhythm Assessment and Plan - Patient Problems (1) Acute on chronic systolic heart failure Current Visit: Yes Status: Acute Plan to address problem: Patient has a history of long-standing chronic systolic heart failure, noncompliant with required routine cardiac follow-up. He presents at this time with fluid overload and end-stage renal failure. Fluid management will be most optimal with dialysis, and the recommendations of nephrology. Medical therapy for left ventricular systolic dysfunction with afterload agents, carvedilol and BiDil.
--- NOTE | 2018-11-24 13:06 | Progress Note ---
Assessment and Plan - Patient Problems (1) Acute on chronic renal failure Current Visit: Yes Status: Acute Qualifiers: Acute renal failure type: unspecified Chronic kidney disease stage: stage 5, not on chronic dialysis Qualified Code(s): N17.9 - Acute kidney failure, unspecified; N18.5 - Chronic kidney disease, stage 5 Plan to address problem: Patient currently refusing initiation of dialysis. We will discontinue nothing by mouth status. We will remain available should he change his mind. Subjective Date of service: 11/24/18 Interval history: Once again discussed placement of permacath for initiation of renal replacement therapy. Yogesh discussion including pros and cons risks benefits and consequences of proceeding with dialysis or refusing dialysis were discussed and a rational manner. The patient appears competent and fully cognizant of the ramifications of not proceeding with hemodialysis. At this time he is still refusing placement of the catheter or initiation of dialysis. I will discontinue his nothing by mouth status and remain available for placement of catheter should he change his mind. I did discuss that he should initiate a living will or some other form of legal documentation that would preclude a family member initiating hemodialysis against his will should he be unable to really make those decisions. Objective - Constitutional Vitals: Vital Signs - 12hr 11/24/18 11/24/18 11/24/18 01:14 01:57 04:57 Temperature 98.3 F Pulse Rate Pulse Rate [ Apical] Respiratory 18 17 Rate Respiratory 18 Rate [Back] Blood Pressure 148/98 O2 Sat by Pulse Oximetry 11/24/18 11/24/18 09:12 10:00 Temperature 98.7 F Pulse Rate 74 Pulse Rate [ 90 Apical] Respiratory 18 18 Rate Respiratory Rate [Back] Blood Pressure 155/102 O2 Sat by Pulse 97 99 Oximetry General appearance: Present: no acute distress - Labs CBC & Chem 7: 11/23/18 11:45 11/24/18 05:45 Labs: Abnormal lab results 11/24/18 11/24/18 Range/Units 00:13 05:45 Chloride 108.5 H (98-107) mmol/L Carbon Dioxide 16 L (22-30) mmol/L BUN 72 H (9-20) mg/dL Creatinine 8.9 H (0.8-1.5) mg/dL Albumin 3.7 L (3.9-5) g/dL Urine Creatinine 46.3 H (0.1-20.0) mg/dL Urine Total Protein 42 H (5-11.8) mg/dL Medications & Allergies - Medications Allergies/Adverse Reactions: Allergies No Known Allergies Allergy (Unverified 08/29/17 11:03) Home Medications: Home Medications Medication Instructions Recorded Confirmed Last Taken Type Coreg 25 mg PO BID #60 08/29/17 Unknown Rx Furosemide [Lasix TAB] 1 tab PO DAILY #30 tablet 08/29/17 Unknown Rx ISOSORBIDE MONOnitrate [Imdur ER] 30 mg PO DAILY #30 tablet 08/29/17 Unknown Rx amLODIPine [Norvasc] 1 tab PO DAILY #30 tablet 08/29/17 Unknown Rx cloNIDine [Catapres] 0.2 mg PO BID #60 tablet 08/29/17 Unknown Rx hydrALAZINE [Apresoline TAB] 1 tab PO QID #120 tablet 08/29/17 Unknown Rx Active Medications: Generic Name Dose Route Start Last Admin Trade Name Freq PRN Reason Stop Dose Admin Acetaminophen 650 mg 11/23/18 13:16 11/23/18 21:06 Tylenol PO 650 mg Q4H PRN Administration Pain MILD(1-3)/Fever >100.5/HUBER Albuterol 2.5 mg 11/23/18 13:16 Proventil IH Q4HRT PRN Shortness Of Breath Allopurinol 100 mg 11/24/18 12:00 11/24/18 11:32 Zyloprim PO 100 mg QDAY EDDY Administration Amlodipine Besylate 5 mg 11/24/18 10:00 11/24/18 10:34 Norvasc PO 5 mg DAILY EDDY Administration Carvedilol 25 mg 11/24/18 12:00 11/24/18 11:32 Coreg PO 25 mg BID EDDY Administration Clonidine HCl 0.2 mg 11/23/18 22:00 11/24/18 10:34 Catapres PO 0.2 mg BID EDDY Administration Furosemide 80 mg 11/24/18 10:00 11/24/18 10:38 Lasix PO Not Given DAILY EDDY Furosemide 40 mg 11/23/18 18:00 11/24/18 05:15 Lasix IV 40 mg BID@0600,1800 EDDY Administration Hydralazine HCl 25 mg 11/23/18 14:00 11/24/18 10:34 Apresoline PO 25 mg QID EDDY Administration Isosorbide Mononitrate 30 mg 11/24/18 10:00 11/24/18 10:33 Imdur PO 30 mg DAILY EDDY Administration Ondansetron HCl 4 mg 11/23/18 13:16 Zofran IV Q8H PRN Nausea And Vomiting Sodium Bicarbonate 650 mg 11/23/18 20:00 11/24/18 10:34 Sodium Bicarbonate PO 650 mg TID EDDY Administration Sodium Chloride 10 ml 11/23/18 22:00 11/24/18 10:51 Sodium Chloride Flush Syringe 10 Ml IV 10 ml BID EDDY Administration Sodium Chloride 10 ml 11/23/18 13:16 Sodium Chloride Flush Syringe 10 Ml IV PRN PRN LINE FLUSH Tramadol HCl 50 mg 11/24/18 00:35 11/24/18 00:57 Ultram PO 50 mg Q6H PRN Administration Pain, Moderate (4-6)
--- NOTE | 2018-11-25 02:59 | Ultrasound Report ---
FINAL REPORT EXAM: US RENAL BILAT HISTORY: Renal failure. COMPARISON: None available. TECHNIQUE: Several real-time grayscale and color Doppler images were obtained. FINDINGS: Right kidney measures 9.5 x 4.5 x 5.6 centimeters. Cortex 1.9 centimeters. Left kidney measures 11.4 x 5.7 x 5.2 centimeters. Cortex 1.7 centimeters. The benign bilateral renal cysts. Superior right renal cyst 1.9 x 1.9 x 1.7 centimeters. The there is a 2nd cyst in the superior right kidney measuring 1.8 x 1.9 x 1.6 centimeters. Mid right renal cyst measuring 1.2 x 1.6 x 1.0 centimeters. There are 3 left renal cyst measuring 1.5 x 1.2 x 1.3 centimeters, 0.8 centimeters and 1.9 centimeter s. The no hydronephrosis. Gross vascular flow to the kidneys. Visualize urinary bladder is unremarkable. IMPRESSION: Bilateral renal cysts. No hydronephrosis.
[2018-11-25 05:29] LABS: Hematocrit 29.1 % (35.5-45.6); Hemoglobin 9.4 gm/dl (11.8-15.2); Mean Corpuscular HGB Conc 32 % (32-34); Mean Corpuscular Hemoglobin 28 pg (28-32); Mean Corpuscular Volume 85 fl (84-94); Platelet Count 138 K/mm3 (140-440); Red Blood Count 3.41 M/mm3 (3.65-5.03)
[2018-11-25] MEDS: LASIX IV SCH (05:44)
[2018-11-25 05:49] LABS: Calcium 9.7 mg/dL (8.4-10.2)
--- NOTE | 2018-11-25 08:30 | Progress Note ---
Assessment and Plan 1. ESRD: Patient presented with volume overload and uremic symptoms. CKD stage 5 has progressed to ESRD. Patient continue to refuse any kind of dialysis. He is aware of the consequences. 2. FEN: Lasix for volume overload. Metabolic acidosis, continue PO sodium bicarbonate. Monitor. 3. CHF exacerbation: Continue Lasix for volume overload. 4. Hypertension: BP is fair. 5. Anemia: Secondary to CKD. 6. Medical non-compliance. Subjective Date of service: 11/25/18 Interval history: Patient was seen and examined at the bedside. Doing ok. Objective - Vital Signs Vital signs: Vital Signs - 12hr 11/24/18 11/24/18 11/24/18 21:40 21:41 21:43 Temperature Pulse Rate 69 69 Respiratory Rate Respiratory Rate [Back] Blood Pressure 146/96 146/96 O2 Sat by Pulse 100 Oximetry 11/24/18 11/25/18 22:00 04:19 Temperature 98.2 F Pulse Rate 70 Respiratory 18 Rate Respiratory 18 Rate [Back] Blood Pressure 132/93 O2 Sat by Pulse 99 Oximetry - General Appearance General appearance: well-developed, appears stated age, other (not in distress) EENT: ATNC, PERRL, hearing intact, vision intact Neck: supple Respiratory: Present: Clear to Ascultation Cardiology: regular, S1S2, no murmurs Gastrointestinal: normoactive bowel sounds, no tenderness, no distended Integumentary: no rash, warm and dry Neurologic: no focal deficit, no asterixis, alert and oriented x3 Musculoskeletal: other (no edema) - Lab 11/25/18 05:08 11/25/18 05:08 Most recent lab results Calcium 9.7 mg/dL (8.4-10.2) 11/25/18 05:08 Phosphorus 4.20 mg/dL (2.5-4.5) 11/24/18 05:45 Magnesium 2.10 mg/dL (1.7-2.3) 11/24/18 05:45 Urine Creatinine 46.3 mg/dL (0.1-20.0) H 11/24/18 00:13 Urine Sodium 122 mmol/L 11/24/18 00:13 Urine Total Protein 42 mg/dL (5-11.8) H 11/24/18 00:13 Medications & Allergies - Medications Allergies/Adverse Reactions: Allergies No Known Allergies Allergy (Unverified 08/29/17 11:03) Home Medications: Home Medications Medication Instructions Recorded Confirmed Last Taken Type Coreg 25 mg PO BID #60 08/29/17 Unknown Rx Furosemide [Lasix TAB] 1 tab PO DAILY #30 tablet 08/29/17 Unknown Rx ISOSORBIDE MONOnitrate [Imdur ER] 30 mg PO DAILY #30 tablet 08/29/17 Unknown Rx amLODIPine [Norvasc] 1 tab PO DAILY #30 tablet 08/29/17 Unknown Rx cloNIDine [Catapres] 0.2 mg PO BID #60 tablet 08/29/17 Unknown Rx hydrALAZINE [Apresoline TAB] 1 tab PO QID #120 tablet 08/29/17 Unknown Rx Active Medications: Generic Name Dose Route Start Last Admin Trade Name Freq PRN Reason Stop Dose Admin Acetaminophen 650 mg 11/23/18 13:16 11/23/18 21:06 Tylenol PO 650 mg Q4H PRN Administration Pain MILD(1-3)/Fever >100.5/HUBER Albuterol 2.5 mg 11/23/18 13:16 Proventil IH Q4HRT PRN Shortness Of Breath Allopurinol 100 mg 11/24/18 12:00 11/24/18 11:32 Zyloprim PO 100 mg QDAY EDDY Administration Amlodipine Besylate 5 mg 11/24/18 10:00 11/24/18 10:34 Norvasc PO 5 mg DAILY EDDY Administration Carvedilol 25 mg 11/24/18 12:00 11/24/18 21:40 Coreg PO 25 mg BID EDDY Administration Clonidine HCl 0.2 mg 11/23/18 22:00 11/24/18 21:40 Catapres PO 0.2 mg BID EDDY Administration Furosemide 80 mg 11/24/18 10:00 11/24/18 10:38 Lasix PO Not Given DAILY EDDY Furosemide 40 mg 11/23/18 18:00 11/25/18 05:44 Lasix IV 40 mg BID@0600,1800 EDDY Administration Hydralazine HCl 25 mg 11/23/18 14:00 11/24/18 21:41 Apresoline PO 25 mg QID EDDY Administration Isosorbide Mononitrate 30 mg 11/24/18 10:00 11/24/18 10:33 Imdur PO 30 mg DAILY EDDY Administration Ondansetron HCl 4 mg 11/23/18 13:16 Zofran IV Q8H PRN Nausea And Vomiting Sodium Bicarbonate 650 mg 11/23/18 20:00 11/24/18 20:06 Sodium Bicarbonate PO 650 mg TID EDDY Administration Sodium Chloride 10 ml 11/23/18 22:00 11/24/18 10:51 Sodium Chloride Flush Syringe 10 Ml IV 10 ml BID EDDY Administration Sodium Chloride 10 ml 11/23/18 13:16 Sodium Chloride Flush Syringe 10 Ml IV PRN PRN LINE FLUSH Tramadol HCl 50 mg 11/24/18 00:35 11/24/18 18:18 Ultram PO 50 mg Q6H PRN Administration Pain, Moderate (4-6)
--- NOTE | 2018-11-25 09:26 | Progress Note ---
Assessment and Plan Assessment and plan: (1) ESRD (end stage renal disease) Current Visit: Yes Status: Acute Plan to address problem: Creatinine 8.8 today Nephrology recommended to initiate hemodialysis vascular evaluated, Patient refused hemodialysis Risks and consequences discussed with the patient Including . Patient Verbalized understanding (2) CHF (congestive heart failure) Current Visit: Yes Status: Acute Qualifiers: Heart failure chronicity: acute Plan to address problem: Admit to Telemetry, cardiology consulted, strict I/O, Daily weight, bnp, diuresis, afterload reduction EF of 10-20%, cardiology following Continue current anti-failure medications (3) Acidosis Current Visit: Yes Status: Acute Plan to address problem: Nephrology recommended dialysis, Patient refused hemodialysis Management per renal (4) DVT prophylaxis Current Visit: Yes Status: Acute Plan to address problem: SCD to BLE while in bed. Heparin and renal dose (5)Medical noncompliance Noncompliance patient refused hemodialysis Patient advised to comply with treatment plan and dialysis Plan of care reviewed with the patient, and his nurse Patient continues to refuse dialysis, and wants to be discharged This patient has end-stage renal disease with a high creatinine and metabolic acidosis And requires hemodialysis patient is refusing I explained to the patient that patient is not stable for discharge Patient wants to leave AMA . I informed the patient's request to his nurse. History Interval history: Patient seen and examined medical records reviewed Patient feels better no new complaints Continues to refuse hemodialysis Vital signs noted Hospitalist Physical - Constitutional Vitals: Temp Pulse Resp BP Pulse Ox 98.3 F 68 18 149/99 98 11/25/18 08:44 11/25/18 08:44 11/25/18 08:44 11/25/18 08:44 11/25/18 08:44 General appearance: Present: no acute distress, well-nourished - EENT Eyes: Present: PERRL, EOM intact - Neck Neck: Present: supple, normal ROM - Respiratory Respiratory effort: normal Respiratory: bilateral: diminished, negative: rales, rhonchi, wheezing - Cardiovascular Rhythm: regular Heart Sounds: Present: S1 & S2 - Extremities Extremities: no ischemia, No edema - Abdominal General gastrointestinal: soft, non-tender, non-distended, normal bowel sounds - Integumentary Integumentary: Present: clear, warm - Psychiatric Psychiatric: appropriate mood/affect, cooperative - Neurologic Neurologic: CNII-XII intact, moves all extremities Results - Labs CBC & Chem 7: 11/25/18 05:08 11/25/18 05:08 Labs: Laboratory Last Values WBC 4.3 K/mm3 (4.5-11.0) L 11/25/18 05:08 RBC 3.41 M/mm3 (3.65-5.03) L 11/25/18 05:08 Hgb 9.4 gm/dl (11.8-15.2) L 11/25/18 05:08 Hct 29.1 % (35.5-45.6) L 11/25/18 05:08 MCV 85 fl (84-94) 11/25/18 05:08 MCH 28 pg (28-32) 11/25/18 05:08 MCHC 32 % (32-34) 11/25/18 05:08 RDW 19.0 % (13.2-15.2) H 11/25/18 05:08 Plt Count 138 K/mm3 (140-440) L 11/25/18 05:08 Lymph % (Auto) 8.7 % (13.4-35.0) L 11/23/18 11:45 [place] % (Auto) 13.7 % (0.0-7.3) H 11/23/18 11:45 Eos % (Auto) 5.2 % (0.0-4.3) H 11/23/18 11:45 Baso % (Auto) 1.3 % (0.0-1.8) 11/23/18 11:45 Lymph # 0.5 K/mm3 (1.2-5.4) L 11/23/18 11:45 [place] # 0.8 K/mm3 (0.0-0.8) 11/23/18 11:45 Eos # 0.3 K/mm3 (0.0-0.4) 11/23/18 11:45 Baso # 0.1 K/mm3 (0.0-0.1) 11/23/18 11:45 Seg Neutrophils % 71.1 % (40.0-70.0) H 11/23/18 11:45 Seg Neutrophils # 4.0 K/mm3 (1.8-7.7) 11/23/18 11:45 PT 14.0 Sec. (12.2-14.9) 11/23/18 11:45 INR 1.04 (0.87-1.13) 11/23/18 11:45 APTT 25.8 Sec. (24.2-36.6) 11/23/18 11:45 Sodium 141 mmol/L (137-145) 11/25/18 05:08 Potassium 4.6 mmol/L (3.6-5.0) 11/25/18 05:08 Chloride 105.1 mmol/L (98-107) 11/25/18 05:08 Carbon Dioxide 19 mmol/L (22-30) L 11/25/18 05:08 Anion Gap 22 mmol/L 11/25/18 05:08 BUN 78 mg/dL (9-20) H 11/25/18 05:08 Creatinine 8.8 mg/dL (0.8-1.5) H 11/25/18 05:08 Estimated GFR 8 ml/min 11/25/18 05:08 BUN/Creatinine Ratio 9 % 11/25/18 05:08 Glucose 94 mg/dL (75-100) 11/25/18 05:08 Calcium 9.7 mg/dL (8.4-10.2) 11/25/18 05:08 Phosphorus 4.20 mg/dL (2.5-4.5) 11/24/18 05:45 Magnesium 2.10 mg/dL (1.7-2.3) 11/24/18 05:45 Total Bilirubin 0.30 mg/dL (0.1-1.2) 11/24/18 05:45 AST 12 units/L (5-40) 11/24/18 05:45 ALT 21 units/L (7-56) 11/24/18 05:45 Alkaline Phosphatase 62 units/L (35-129) 11/24/18 05:45 Troponin T 0.122 ng/mL (0.00-0.029) H* 11/23/18 11:45 NT-Pro-B Natriuret Pep 8651 pg/mL (0-900) H 11/23/18 11:45 Total Protein 6.4 g/dL (6.3-8.2) 11/24/18 05:45 Albumin 3.7 g/dL (3.9-5) L 11/24/18 05:45 Albumin/Globulin Ratio 1.4 % 11/24/18 05:45 Triglycerides 65 mg/dL (2-149) 11/23/18 11:45 Cholesterol 146 mg/dL (50-199) 11/23/18 11:45 LDL Cholesterol Direct 96 mg/dL (50-130) 11/23/18 11:45 HDL Cholesterol 48 mg/dL (40-59) 11/23/18 11:45 Cholesterol/HDL Ratio 3.04 % 11/23/18 11:45 Urine Color Straw (Yellow) 11/24/18 00:13 Urine Turbidity Clear (Clear) 11/24/18 00:13 Urine pH 7.0 (5.0-7.0) 11/24/18 00:13 Ur Specific [place] 1.006 (1.003-1.030) 11/24/18 00:13 Urine Protein 30 mg/dl mg/dL (Negative) 11/24/18 00:13 Urine Glucose (UA) 50 mg/dL (Negative) 11/24/18 00:13 Urine Ketones Neg mg/dL (Negative) 11/24/18 00:13 Urine Blood Sm (Negative) 11/24/18 00:13 Urine Nitrite Neg (Negative) 11/24/18 00:13 Urine Bilirubin Neg (Negative) 11/24/18 00:13 Urine Urobilinogen < 2.0 mg/dL (<2.0) 11/24/18 00:13 Ur Leukocyte Esterase Neg (Negative) 11/24/18 00:13 Urine WBC (Auto) < 1.0 /HPF (0.0-6.0) 11/24/18 00:13 Urine RBC (Auto) < 1.0 /HPF (0.0-6.0) 11/24/18 00:13 Urine Mucus Few /HPF 11/24/18 00:13 Urine Creatinine 46.3 mg/dL (0.1-20.0) H 11/24/18 00:13 Protein/Creatinin Ratio 0.91 11/24/18 00:13 Urine Sodium 122 mmol/L 11/24/18 00:13 Urine Total Protein 42 mg/dL (5-11.8) H 11/24/18 00:13
[2018-11-25] MEDS: SODIUM BICARBONATE PO SCH (10:46)
[2018-11-25] MEDS: NORVASC PO SCH (10:46)
[2018-11-25] MEDS: ZYLOPRIM PO SCH (10:47)
[2018-11-25] MEDS: IMDUR PO SCH (10:47)
[2018-11-25] MEDS: LASIX PO SCH (10:48)
[2018-11-25] MEDS: CATAPRES PO SCH (10:48)
[2018-11-25] MEDS: APRESOLINE PO SCH (10:48)
[2018-11-25] MEDS: SODIUM CHLORIDE FLUSH SYRINGE 10 ML IV SCH ×2 (10:49→10:50)
[2018-11-25] MEDS: COREG PO SCH (11:05)
[2018-11-25 11:51] VITALS: BP 131/89
--- NOTE | 2018-11-25 12:57 | Progress Note ---
Assessment and Plan - Patient Problems (1) Acute on chronic systolic heart failure Current Visit: Yes Status: Acute Plan to address problem: Patient has a history of long-standing chronic systolic heart failure, noncompliant with required routine cardiac follow-up. He presents at this time with fluid overload and end-stage renal failure. Fluid management will be most optimal with dialysis, but patient refuses, wants conservative management was for his end-stage renal failure and end-stage heart failure. Medical therapy for left ventricular systolic dysfunction with afterload agents, carvedilol and BiDil. Subjective Date of service: 11/25/18 Interval history: Patient is comfortable, no new cardiac complaints. He is completely unaware of his chronic medical problems which include end-stage renal failure, end-stage heart failure with severe systolic LV dysfunction, but continues to refuse hemodialysis or further aggressive cardiac therapies. Objective Vital Signs Temp Pulse Resp Resp BP Pulse Ox 11/25/18 11:49 98.2 F 68 18 131/89 98 11/25/18 11:05 68 149/99 11/25/18 10:48 68 144/99 11/25/18 10:47 68 144/99 11/25/18 10:46 68 149/99 11/25/18 08:44 98.3 F 68 18 149/99 98 11/25/18 04:19 98.2 F 70 18 132/93 99 11/24/18 22:00 18 11/24/18 21:43 100 11/24/18 21:41 69 146/96 11/24/18 21:40 69 146/96 11/24/18 19:52 98.5 F 69 18 142/94 97 - Physical Examination General: No Apparent Distress HEENT: Positive: PERRL Neck: Positive: neck supple Cardiac: Positive: Reg Rate and Rhythm Lungs: Positive: Decreased Breath Sounds Neuro: Positive: Grossly Intact Abdomen: Positive: Soft Skin: Positive: Clear Extremities: Present: +1 Edema - Labs and Meds CBC 11/25/18 Range/Units 05:08 WBC 4.3 L (4.5-11.0) K/mm3 RBC 3.41 L (3.65-5.03) M/mm3 Hgb 9.4 L (11.8-15.2) gm/dl Hct 29.1 L (35.5-45.6) % Plt Count 138 L (140-440) K/mm3 Comprehensive Metabolic Panel 11/25/18 Range/Units 05:08 Sodium 141 (137-145) mmol/L Potassium 4.6 (3.6-5.0) mmol/L Chloride 105.1 (98-107) mmol/L Carbon Dioxide 19 L (22-30) mmol/L BUN 78 H (9-20) mg/dL Creatinine 8.8 H (0.8-1.5) mg/dL Glucose 94 (75-100) mg/dL Calcium 9.7 (8.4-10.2) mg/dL
--- NOTE | 2018-11-25 16:30 | Discharge Summary ---
Providers - Providers Date of Admission: 11/23/18 13:16 Date of discharge: 11/25/18 Attending physician: YASMANI COLORADO 11/23/18 13:39 Consult to Physician [CONS] Routine Comment: Consulting Provider: CLAIRE MERCADO Physician Instructions: Reason For Exam: chf 11/23/18 14:15 Consult to Physician [CONS] Routine Comment: Consulting Provider: LINO BURTON Physician Instructions: Reason For Exam: esrd Primary care physician: GRINDER OPERATOR TOOL Hospitalization Condition: Stable Hospital course: (1) ESRD (end stage renal disease) Current Visit: Yes Status: Acute Plan to address problem: Creatinine 8.8 today Nephrology recommended to initiate hemodialysis vascular evaluated, Patient refused hemodialysis Risks and consequences discussed with the patient Including . Patient Verbalized understanding (2) CHF (congestive heart failure) Current Visit: Yes Status: Acute Qualifiers: Heart failure chronicity: acute Plan to address problem: Admit to Telemetry, cardiology consulted, strict I/O, Daily weight, bnp, diuresis, afterload reduction EF of 10-20%, cardiology following Continue current anti-failure medications (3) Acidosis Current Visit: Yes Status: Acute Plan to address problem: Nephrology recommended dialysis, Patient refused hemodialysis Management per renal (4) DVT prophylaxis Current Visit: Yes Status: Acute Plan to address problem: SCD to BLE while in bed. Heparin and renal dose (5)Medical noncompliance Noncompliance patient refused hemodialysis Patient advised to comply with treatment plan and dialysis Plan of care reviewed with the patient, and his nurse Patient continues to refuse dialysis, and wants to be discharged This patient has end-stage renal disease with a high creatinine and metabolic acidosis And requires hemodialysis patient is refusing I explained to the patient that patient is not stable for discharge Patient wants to leave AMA . I informed the patient's request to his nurse. Disposition: DC-07 LEFT AGAINST MED ADVICE Core Measure Documentation - Palliative Care Palliative Care/ Comfort Measures: Not Applicable - Core Measures Any of the following diagnoses?: heart failure - Heart Failure Discharge Requirements JAYMIE/ARB for LVSD if EF <40%: No (patient left AMA) Reason for no beta yung on DC: Patient refusal (Left AMA) Exam - Constitutional Vitals: Temp Pulse Resp BP Pulse Ox 98.2 F 68 18 131/89 98 11/25/18 11:49 11/25/18 11:49 11/25/18 11:49 11/25/18 11:49 11/25/18 11:49 General appearance: Present: no acute distress, well-nourished - EENT Eyes: Present: PERRL, EOM intact - Neck Neck: Present: supple, normal ROM - Respiratory Respiratory effort: normal Respiratory: bilateral: diminished, negative: rales, rhonchi, wheezing - Cardiovascular Rhythm: regular Heart Sounds: Present: S1 & S2 - Extremities Extremities: no ischemia, No edema - Abdominal General gastrointestinal: Present: soft, non-tender, non-distended, normal bowel sounds - Integumentary Integumentary: Present: clear, warm - Musculoskeletal Musculoskeletal: strength equal bilaterally - Psychiatric Psychiatric: appropriate mood/affect, cooperative - Neurologic Neurologic: CNII-XII intact, moves all extremities Plan Activity: no restrictions Diet: renal, other (cardiac diet) Additional Instructions: Patient strongly advised to follow with his private sld inclusion teacher and dinkey locomotive engineer,And consider hemodialysis Follow up with: PRIMARY CARE, [Primary Care Provider] - 3-5 Days Forms: AMA Form
== END 2018-11-25 15:09 | disposition left against medical advice (07) | DRG 291 ==
LOC: ED 10:59 → 3A 13:16 → 4A 17:04
PROVIDERS: ADMIT Internal Medicine; ATTEND Internal Medicine
DX: I13.2 Hypertensive heart and chronic kidney disease with heart failure and with stage 5 chronic kidney disease, or end stage renal disease (principal); N18.6 End stage renal disease; I50.23 Acute on chronic systolic (congestive) heart failure; E87.2 Acidosis; N17.9 Acute kidney failure, unspecified; J81.1 Chronic pulmonary edema; I42.0 Dilated cardiomyopathy; E78.5 Hyperlipidemia, unspecified; Z91.19 Patient's noncompliance with other medical treatment and regimen; D63.1 Anemia in chronic kidney disease; I44.7 Left bundle-branch block, unspecified; Z53.21 Procedure and treatment not carried out due to patient leaving prior to being seen by health care provider
CPT/HCPCS: 36415; 71045; 76770; 80048; 80053; 80061; 81001; 82570; 83735; 83880; 84100; 84156; 84300; 84484; 85025; 85027; 85610; 85730; 87116; 93005; 93010; 93306; G0378; J1940